=== PATIENT | male | born 1955 | race African-American/Black ===

== ENCOUNTER 2016-08-03 11:08 | Inpatient (IN) | payer OTHER ==
[2016-08-03 12:20] VITALS: BMI 24.2
--- NOTE | 2016-08-03 13:26 | HP ---
CIWA Score - CIWA Score Nausea/Vomitin-No Nausea/No Vomiting Muscle Tremors: 4-Moderate,w/Arms Extend Anxiety: 4-Mod. Anxious/Guarded Agitation: 4-Moderately Restless Paroxysmal Sweats: 3 Orientation: 0-Oriented Tacttile Disturbances: 0-None Auditory Disturbances: 0-None Visual Disturbances: 0-None Headache: 0-None Present CIWA-Ar Total Score: 15 Admission ROS BHS - HPI Chief Complaint: I am here to detox and go to rehab. Allergies/Adverse Reactions: Allergies Allergy/AdvReac Type Severity Reaction Status Date / Time No Known Allergies Allergy Verified 08/03/16 13:12 History of Present Illness: pt is a 60yr old male with a history of alcohol dependence seeking detox for treatment. Exam Limitations: No Limitations - Ebola screening Have you traveled outside of the country in the last 21 days: No Have you had contact with anyone from an Ebola affected area: No Have you been sick,other than usual withdrawal symptoms: No - Review of Systems Constitutional: Diaphoresis, Loss of Appetite, Night Sweats, Unintentional Wgt. Loss EENT: reports: No Symptoms Reported, Blurred Vision, Other (KOI left ear.) Respiratory: reports: No Symptoms reported Cardiac: reports: Syncope GI: reports: Poor Appetite, Poor Fluid Intake : reports: No Symptoms Reported Musculoskeletal: reports: No Symptoms Reported Integumentary: reports: No Symptoms Reported Neuro: reports: Tingling, Tremors Endocrine: reports: Flushing, Intolerance to Cold, Intolerance to Heat Hematology: reports: No Symptoms Reported Psychiatric: reports: Judgement Intact, Mood/Affect Appropiate, Orientated x3, Agitated, Anxious Other Systems: Reviewed and Negative Patient History - Patient Medical History Hx Anemia: No Hx Asthma: No Hx Chronic Obstructive Pulmonary Disease (COPD): No Hx Cancer: No Hx Cardiac Disorders: No Hx Congestive Heart Failure: No Hx Hypertension: No Hx Hypercholesterolemia: No Hx Pacemaker: No HX Cerebrovascular Accident: No Hx Seizures: No Hx Dementia: No Hx Diabetes: No Hx Gastrointestinal Disorders: No Hx Liver Disease: No Hx Genitourinary Disorders: No Hx Sexually Transmitted Disorders: Yes (1983 syphillis and treated) Hx Renal Disease (ESRD): No Hx Thyroid Disease: No Hx Human Immunodeficiency Virus (HIV): No (negative) Hx Hepatitis C: No (negative) Hx Depression: Yes Hx Suicide Attempt: No (denies) Hx Bipolar Disorder: No Hx Schizophrenia: Yes - Patient Surgical History Past Surgical History: No Hx Orthopedic Surgery: Yes (fx left arm 1976) Other Surgical History: dental 1986 - PPD History Previous Implant?: Yes Documented Results: Negative w/o proof Implanted On Prior [facility] Admission?: Yes PPD to be Administered?: Yes - Reproductive History Patient is a Female of Child Bearing Age (11 -55 yrs old): No - Smoking Cessation Smoking history: Current every day smoker Have you smoked in the past 12 months: Yes Aproximately how many cigarettes per day: 10 Hx Chewing Tobacco Use: No Initiated information on smoking cessation: Yes 'Breaking Loose' booklet given: 08/03/16 - Substance & Tx. History Hx Alcohol Use: Yes Hx Substance Use: Yes Substance Use Type: Alcohol, Marijuana Hx Substance Use Treatment: Yes - Substances Abused Alcohol Route: Oral Frequency: Daily Amount used: 1 PINT OF SCOTCH OR WHISKEY Age of first use: 13 Date of Last Use: 08/02/16 K2 Route: Smoking Frequency: Daily Amount used: 4 JOINTS Age of first use: 59 Date of Last Use: 08/02/16 Family Disease History - Family Disease History Family Disease History: Heart Disease: Mother, Other: Grandparent (ARTHRITIS) Admission Physical Exam S - Vital Signs Vital Signs: Vital Signs - 24 hr 08/03/16 12:18 Temperature 96.2 F L Pulse Rate 71 Respiratory 20 Rate Blood Pressure 132/81 - Physical General Appearance: Yes: Appropriately Dressed, Tremorous, Irritable, Sweating, Anxious HEENTM: Yes: Hearing grossly Normal, Other (KOI left ear) Respiratory: Yes: Lungs Clear, Normal Breath Sounds, No Respiratory Distress Neck: Yes: No masses,lesions,Nodules Breast: Yes: Within Normal Limits Cardiology: Yes: Regular Rhythm, Regular Rate, S1, S2 Abdominal: Yes: Normal Bowel Sounds, Non Tender, Soft Genitourinary: Yes: Within Normal Limits Back: Yes: Normal Inspection Musculoskeletal: Yes: full range of Motion, Back pain Extremities: Yes: Normal Capillary Refill, Non-Tender, Tremors Neurological: Yes: Fully Oriented, Alert, Normal Response Integumentary: Yes: Normal Color Lymphatic: Yes: Within Normal Limits - Diagnostic (1) Nicotine dependence Current Visit: Yes Status: Chronic Qualifiers: Nicotine product type: cigarettes Substance use status: uncomplicated Qualified Code(s): F17.210 - Nicotine dependence, cigarettes, uncomplicated (2) Paranoid schizophrenia Current Visit: No Status: Chronic (3) Alcohol dependence with uncomplicated withdrawal Current Visit: Yes Status: Chronic Cleared for Admission [facility] - Detox or Rehab [facility] Level of Care: Medically Managed Detox Regimen/Protocol: Librium BHS Breath Alcohol Content Breath Alcohol Content: 0 Urine Drug Screen - Results Drug Screen Negative: Yes
[2016-08-03] MEDS ORDERED: guaiFENesin/D-METHORPHAN HB 10 ML UNIT-DOSE CUPS PO PRN (13:33)
[2016-08-03] MEDS ORDERED: P-EPHED 60MG/TRIPROLIDI 2.5MG TABLET PO PRN (13:33)
[2016-08-03] MEDS ORDERED: MAGNESIUM HYDROX 2400MG/30ML ORAL SUSPENSION 30 ML CUP PO PRN (13:33)
[2016-08-03] MEDS ORDERED: chlordiazePOXIDE HCL 25 MG CAPSULE PO PRN (13:33)
[2016-08-03] MEDS ORDERED: ACETAMINOPHEN 325 MG TABLET (FP) PO PRN (13:33)
[2016-08-03] MEDS ORDERED: LOPERAMIDE HCL 2 MG CAPSULE PO PRN (13:33)
[2016-08-03] MEDS ORDERED: MAGNESIUM CITRATE 300 ML BOTTLE PO PRN (13:33)
[2016-08-03] MEDS ORDERED: NICOTINE POLACRILEX 4 MG GUM BC PRN (13:33)
[2016-08-03] MEDS ORDERED: MAG HYDROX/AL HYDROX/SIMETH 30 ML UNIT-DOSE CUP PO PRN (13:33)
[2016-08-03] MEDS ORDERED: MENTHOL/PHENOL 1 EACH UD MM PRN (13:33)
[2016-08-03] MEDS ORDERED: hydrOXYzine PAMOATE 50 MG CAPSULE (FP) PO PRN (13:33)
[2016-08-03] MEDS ORDERED: IBUPROFEN 400 MG TABLET (FP) PO PRN (13:33)
[2016-08-03] MEDS ORDERED: chlordiazePOXIDE HCL 25 MG CAPSULE PO ONE (14:15)
[2016-08-03] MEDS: chlordiazePOXIDE HCL 25 MG CAPSULE PO SCH ×2 (17:31→23:07)
[2016-08-03 20:20] LABS: URINE APPEARANCE CLEAR; URINE BILIRUBIN NEGATIVE (NEGATIVE); URINE BLOOD NEGATIVE (NEGATIVE); URINE COLOR YELLOW; URINE GLUCOSE (UA) NEGATIVE (NEGATIVE); URINE KETONE NEGATIVE (NEGATIVE); URINE LEUK ESTERASE NEGATIVE (NEGATIVE); URINE NITRITE NEGATIVE (NEGATIVE); URINE PROTEIN NEGATIVE (NEGATIVE); URINE UROBILINOGEN NEGATIVE E.U./dl (0.2-1.0)
[2016-08-03] MEDS: THIAMINE HCL 100 MG TABLET (FP) PO SCH (23:07)
[2016-08-04] MEDS: chlordiazePOXIDE HCL 25 MG CAPSULE PO SCH ×4 (06:37→22:14)
[2016-08-04 10:33] LABS: ALBUMIN 3.7 g/dl (3.4-5.0); ANION GAP 5 (8-16); CALCIUM 9.5 mg/dL (8.5-10.1); CO2 29 mmol/L (21-32); GLUCOSE,RANDOM 174 mg/dL (74-106); SGOT/AST 12 U/L (15-37); SGPT/ALT 14 U/L (12-78)
[2016-08-04 10:36] LABS: ALK PHOS 63 U/L (45-117); BILIRUBIN,TOTAL 0.3 mg/dL (0.2-1.0); COCKROFT - GAULT 75.14; CREATININE 1.1 mg/dL (0.7-1.3); TOT PROT 7.2 g/dl (6.4-8.2)
[2016-08-04] MEDS: ASPIRIN 81 MG CHEWABLE TABLETS PO SCH (10:37)
[2016-08-04] MEDS: PRENATAL VITAMINS W/ FOLIC ACID TABLET (FP) PO SCH (10:37)
[2016-08-04] MEDS: NICOTINE 21 MG/24 HOURS TOPICAL PATCH TD SCH (10:39)
[2016-08-04 10:47] LABS: MCH 22.6 pg (25.7-33.7); MCHC 31.9 g/dl (32.0-35.9); MEAN CELL VOLUME 70.9 fl (80-96); MEAN PLT VOLUME 9.7 fl (7.5-11.1); PLATELET COUNT 243 K/MM3 (134-434); RDW 18.6 % (11.9-15.9); WHITE BLOOD COUNT 7.6 K/mm3 (4.0-10.0)
[2016-08-04 12:21] LABS: HIV 1 & 2 AB NEGATIVE; HIV 1 AGp24 NEGATIVE
--- NOTE | 2016-08-04 14:42 | PN ---
S CIWA - CIWA Score Nausea/Vomitin-No Nausea/No Vomiting Muscle Tremors: 3 Anxiety: 4-Mod. Anxious/Guarded Agitation: 3 Paroxysmal Sweats: 3 Orientation: 0-Oriented Tacttile Disturbances: 0-None Auditory Disturbances: 0-None Visual Disturbances: 0-None Headache: 0-None Present CIWA-Ar Total Score: 13 BHS Progress Note (SOAP) Subjective: Anxiety,tremors,sweating,interrupted sleep,restless. Objective: 08/04/16 14:41 Vital Signs - 8 hr 08/04/16 08/04/16 10:00 14:15 Temperature 97.0 F L 98.2 F Pulse Rate 80 78 Respiratory 18 20 Rate Blood Pressure 143/76 128/64 Laboratory Tests 08/03/16 08/03/16 08/04/16 13:00 14:30 06:00 WBC 7.6 RBC 5.23 Hgb 11.8 Hct 37.1 MCV 70.9 L MCHC 31.9 L RDW 18.6 H Plt Count 243 MPV 9.7 Sodium Potassium Chloride Carbon Dioxide Anion Gap BUN Creatinine Creat Clearance w eGFR Random Glucose Calcium Total Bilirubin AST ALT Alkaline Phosphatase Total Protein Albumin Urine Color Yellow Urine Appearance Clear Urine pH 5.0 D Ur Specific [place] 1.015 Urine Protein Negative Urine Glucose (UA) Negative Urine Ketones Negative Urine Blood Negative Urine Nitrite Negative Urine Bilirubin Negative Urine Urobilinogen Negative Ur Leukocyte Esterase Negative HIV 1&2 Antibody Screen Negative HIV P24 Antigen Negative 08/04/16 06:00 WBC RBC Hgb Hct MCV MCHC RDW Plt Count MPV Sodium 139 Potassium 5.1 Chloride 105 Carbon Dioxide 29 Anion Gap 5 L BUN 24 H D Creatinine 1.1 D Creat Clearance w eGFR > 60 Random Glucose 174 H D Calcium 9.5 Total Bilirubin 0.3 D AST 12 L ALT 14 Alkaline Phosphatase 63 Total Protein 7.2 Albumin 3.7 Urine Color Urine Appearance Urine pH Ur Specific [place] Urine Protein Urine Glucose (UA) Urine Ketones Urine Blood Urine Nitrite Urine Bilirubin Urine Urobilinogen Ur Leukocyte Esterase HIV 1&2 Antibody Screen HIV P24 Antigen labs noted Assessment: 08/04/16 14:41 Withdrawal sx. Plan: Continue detox
--- NOTE | 2016-08-04 17:04 | CONSULT ---
[facility] Psychiatric Consult - Data Date of interview: 08/04/16 Admission source: [facility] Identifying data: Readmision to [facility] for this 60 y/o AA male seeking detox treatment for alcohol,cocaine (crack) and marijuana (K2) dependence.Patient is single,a father of two,domiciled unemployed and supported on SSI/SSD benefits. Substance Abuse History: Smoking Cessation. Smoking history: Current every day smoker. Have you smoked in the past 12 months: Yes. Aproximately how many cigarettes per day: 10. Hx Chewing Tobacco Use: No. Initiated information on smoking cessation: Yes. 'Breaking Loose' booklet given: 08/03/16. - Substance & Tx. History. Hx Alcohol Use: Yes. Hx Substance Use: Yes. Substance Use Type : Alcohol, Marijuana. Hx Substance Use Treatment: Yes. - Substances Abused. * * Alcohol. Route: Oral. Frequency: Daily. Amount used: 1 PINT OF SCOTCH OR WHISKEY. Age of first use: 13. Date of Last Use: 08/02/16. K2. Route: Smoking. Frequency: Daily. Amount used: 4 JOINTS. Age of first use: 59. Date of Last Use: 08/02/16. Confirmed by patient. Medical History: Patient endorses good general health.Remote history of treatment for syphilis. Psychiatric History: Diagnosed with Paranoid Schizophrenia.History of multiple psychiatric hospitalizations.Mr Roberts reports OPD follow up care at the [facility] mental health clinic.Maintained on a regimen of haldol decanoate 150 mg IM Q monthly (received on 07/12/16 as per self-report) + cogentin 2 mg po bid + depakote 500 mg po bid.Patient endorses adherence to his aftercare.No reported history of suicide attempts. Physical/Sexual Abuse/Trauma History: Patient denies. Additional Comment: Drug Screen is negative. Mental Status Exam - Mental Status Exam Alert and Oriented to: Time, Place, Person Cognitive Function: Grossly Intact Patient Appearance: Well Groomed (edentulous) Mood: Withdrawn, Hopeful Affect: Blunted Patient Behavior: Fatigued, Cooperative Speech Pattern: Slurred Voice Loudness: Normal Thought Process: Goal Oriented Thought Disorder: Not Present Hallucinations: Denies Suicidal Ideation: Denies Homicidal Ideation: Denies Insight/Judgement: Poor Sleep: Fair Appetite: Good Muscle strength/Tone: Normal Gait/Station: Normal Psychiatric Findings - Problem List ([place] 1, 2,3) (1) Paranoid schizophrenia Current Visit: Yes Status: Chronic (2) Alcohol dependence with uncomplicated withdrawal Current Visit: Yes Status: Acute (3) Nicotine dependence Current Visit: Yes Status: Acute Qualifiers: Nicotine product type: cigarettes Substance use status: uncomplicated Qualified Code(s): F17.210 - Nicotine dependence, cigarettes, uncomplicated (4) Tardive dyskinesia Current Visit: Yes Status: Chronic - Initial Treatment Plan Initial Treatment Plan: Psychoeducation.Detoxification.Medications : cogentin 1 mg po bid + depakote 500 mg po bid.Side effects/benefits are discussed with the patient.Educated about abnormal involuntary movements,dystonias,akathisia, tardive dyskinesia,neuroleptic malignant syndrome with the use of haldol / blood dyscrasias,liver dysfunction,weight gain,alopecia from utilization of valproate / anticholinergic complications from use of cogentin.Teaching conducted in lay language.Patient gave his consent (verbal) for continuation of this regime of medications.Will follow valproic acid level (requested) .Observation.Patient declines scripts at discharge (refills from his OPD provider are available).
--- NOTE | 2016-08-04 19:24 | EKG ---
Test Reason : Blood Pressure : / mmHG Vent. Rate : 069 BPM Atrial Rate : 069 BPM P-R Int : 146 ms QRS Dur : 090 ms QT Int : 418 ms P-R-T Axes : 070 063 055 degrees QTc Int : 447 ms NORMAL SINUS RHYTHM MODERATE VOLTAGE CRITERIA FOR LVH, MAY BE NORMAL VARIANT ANTEROSEPTAL INFARCT , AGE UNDETERMINED ABNORMAL ECG NO PREVIOUS ECGS AVAILABLE Confirmed by BRAYDEN MARLEY, ASTRID ([id number]) on 08/04/2016 7:23:36 PM Referred By: Confirmed By:ASTRID OWEN MD
[2016-08-04] MEDS: DIVALPROEX SODIUM 500 MG TABLET E.C. PO SCH (22:14)
[2016-08-04] MEDS: BENZTROPINE MESYLATE 1 MG TABLET (FP) PO SCH (22:14)
[2016-08-04] MEDS: diphenhydrAMINE HCL 50 MG CAPSULE PO PRN (22:15)
[2016-08-04] MEDS: THIAMINE HCL 100 MG TABLET (FP) PO SCH (22:17)
[2016-08-05] MEDS: chlordiazePOXIDE HCL 25 MG CAPSULE PO SCH ×2 (06:47→10:19)
[2016-08-05] MEDS: ASPIRIN 81 MG CHEWABLE TABLETS PO SCH (10:19)
[2016-08-05] MEDS: NICOTINE 21 MG/24 HOURS TOPICAL PATCH TD SCH (10:19)
[2016-08-05] MEDS: PRENATAL VITAMINS W/ FOLIC ACID TABLET (FP) PO SCH (10:19)
[2016-08-05] MEDS: BENZTROPINE MESYLATE 1 MG TABLET (FP) PO SCH ×2 (10:19→22:24)
[2016-08-05] MEDS: DIVALPROEX SODIUM 500 MG TABLET E.C. PO SCH ×2 (10:19→22:24)
--- NOTE | 2016-08-05 11:31 | PN ---
[facility] CIWA - CIWA Score Nausea/Vomitin-No Nausea/No Vomiting Muscle Tremors: 3 Anxiety: 2 Agitation: 2 Paroxysmal Sweats: 3 Orientation: 0-Oriented Tacttile Disturbances: 0-None Auditory Disturbances: 0-None Visual Disturbances: 0-None Headache: 0-None Present CIWA-Ar Total Score: 10 S Progress Note (SOAP) Subjective: Anxiety,tremors,sweating,interrupted sleep,restless. Objective: 08/05/16 11:27 Vital Signs - 8 hr 08/05/16 08/05/16 08/05/16 03:30 06:27 09:47 Temperature 97.0 F L 97.7 F Pulse Rate 55 L 71 Respiratory 18 18 18 Rate Blood Pressure 132/77 110/75 Laboratory Last Values WBC 7.6 K/mm3 (4.0-10.0) 08/04/16 06:00 RBC 5.23 M/mm3 (4.00-5.60) 08/04/16 06:00 Hgb 11.8 GM/dL (11.7-16.9) 08/04/16 06:00 Hct 37.1 % (35.4-49) 08/04/16 06:00 MCV 70.9 fl (80-96) L 08/04/16 06:00 MCHC 31.9 g/dl (32.0-35.9) L 08/04/16 06:00 RDW 18.6 % (11.9-15.9) H 08/04/16 06:00 Plt Count 243 K/MM3 (134-434) 08/04/16 06:00 MPV 9.7 fl (7.5-11.1) 08/04/16 06:00 Sodium 139 mmol/L (136-145) 08/04/16 06:00 Potassium 5.1 mmol/L (3.5-5.1) 08/04/16 06:00 Chloride 105 mmol/L (98-107) 08/04/16 06:00 Carbon Dioxide 29 mmol/L (21-32) 08/04/16 06:00 Anion Gap 5 (8-16) L 08/04/16 06:00 BUN 24 mg/dL (7-18) H D 08/04/16 06:00 Creatinine 1.1 mg/dL (0.7-1.3) D 08/04/16 06:00 Creat Clearance w eGFR > 60 (>60) 08/04/16 06:00 Random Glucose 174 mg/dL (74-106) H D 08/04/16 06:00 Calcium 9.5 mg/dL (8.5-10.1) 08/04/16 06:00 Total Bilirubin 0.3 mg/dL (0.2-1.0) D 08/04/16 06:00 AST 12 U/L (15-37) L 08/04/16 06:00 ALT 14 U/L (12-78) 08/04/16 06:00 Alkaline Phosphatase 63 U/L (45-117) 08/04/16 06:00 Total Protein 7.2 g/dl (6.4-8.2) 08/04/16 06:00 Albumin 3.7 g/dl (3.4-5.0) 08/04/16 06:00 Urine Color Yellow 08/03/16 13:00 Urine Appearance Clear 08/03/16 13:00 Urine pH 5.0 (5.0-8.0) D 08/03/16 13:00 Ur Specific [place] 1.015 (1.005-1.025) 08/03/16 13:00 Urine Protein Negative (NEGATIVE) 08/03/16 13:00 Urine Glucose (UA) Negative (NEGATIVE) 08/03/16 13:00 Urine Ketones Negative (NEGATIVE) 08/03/16 13:00 Urine Blood Negative (NEGATIVE) 08/03/16 13:00 Urine Nitrite Negative (NEGATIVE) 08/03/16 13:00 Urine Bilirubin Negative (NEGATIVE) 08/03/16 13:00 Urine Urobilinogen Negative E.U./dl (0.2-1.0) 08/03/16 13:00 Ur Leukocyte Esterase Negative (NEGATIVE) 08/03/16 13:00 HIV 1&2 Antibody Screen Negative 08/03/16 14:30 HIV P24 Antigen Negative 08/03/16 14:30 labs noted Assessment: 08/05/16 11:28 Withdrawal sx. Plan: Continue detox
[2016-08-05] MEDS: chlordiazePOXIDE 5 MG CAPSULE PO SCH ×2 (17:20→22:23)
[2016-08-05] MEDS: THIAMINE HCL 100 MG TABLET (FP) PO SCH (22:24)
[2016-08-05] MEDS: diphenhydrAMINE HCL 50 MG CAPSULE PO PRN (22:26)
[2016-08-06] MEDS: chlordiazePOXIDE 5 MG CAPSULE PO SCH ×2 (05:45→10:34)
--- NOTE | 2016-08-06 09:32 | PN ---
S Progress Note (SOAP) Subjective: ALERT,IRRITABLE,ANXIOUS,INTERRUPTED SLEEP Objective: 08/06/16 09:30 Vital Signs Temperature 98.1 F 08/06/16 06:36 Pulse Rate 50 L 08/06/16 06:36 Respiratory Rate 16 08/06/16 06:36 Blood Pressure 130/73 08/06/16 06:36 O2 Sat by Pulse Oximetry (%) Assessment: 08/06/16 09:30 WITHDRAWAL SYMPTOM Plan: CONTINUE DETOX,INITIAL GLUCOSE 170,BGM BID,DISCHARGE IN AM
[2016-08-06] MEDS: ASPIRIN 81 MG CHEWABLE TABLETS PO SCH (10:33)
[2016-08-06] MEDS: DIVALPROEX SODIUM 500 MG TABLET E.C. PO SCH ×2 (10:34→22:16)
[2016-08-06] MEDS: NICOTINE 21 MG/24 HOURS TOPICAL PATCH TD SCH (10:34)
[2016-08-06] MEDS: BENZTROPINE MESYLATE 1 MG TABLET (FP) PO SCH ×2 (10:34→22:16)
[2016-08-06] MEDS: PRENATAL VITAMINS W/ FOLIC ACID TABLET (FP) PO SCH (10:34)
[2016-08-06] MEDS: chlordiazePOXIDE HCL 10 MG CAPSULE PO SCH ×2 (17:21→22:16)
[2016-08-06] MEDS: THIAMINE HCL 100 MG TABLET (FP) PO SCH (22:16)
[2016-08-07] MEDS: chlordiazePOXIDE HCL 10 MG CAPSULE PO SCH ×2 (05:24→11:24)
--- NOTE | 2016-08-07 08:34 | PN ---
S Progress Note (SOAP) Subjective: ALERT,NO COMPLAINT Objective: 08/07/16 08:33 Vital Signs Temperature 97.0 F L 08/07/16 06:24 Pulse Rate 51 L 08/07/16 06:24 Respiratory Rate 18 08/07/16 06:24 Blood Pressure 125/70 08/07/16 06:24 O2 Sat by Pulse Oximetry (%) Assessment: 08/07/16 08:33 DETOX COMPLETED,NO WITHDRAWAL SYMPTOM Plan: DISCHARGE TODAY,FOLLOW UP WITH AFTER CARE PROGRAM ARRANGEMENT
--- NOTE | 2016-08-07 08:35 | DS ---
[facility] Detox Discharge Summary Admission Date: 08/03/16 Discharge Date: 08/07/16 - History Present History: Alcohol Dependence Additional Comments: FOLLOW UP WITH AFTER [facility] PROGRAM ARRANGEMENT AND PMD FOR MEDICAL PROBLEM Pertinent Past History: NICOTINE DEPENDENCE PARANOID SCHIZOPHRENIA - Physical Exam Results Vital Signs: Vital Signs Temperature 97.0 F L 08/07/16 06:24 Pulse Rate 51 L 08/07/16 06:24 Respiratory Rate 18 08/07/16 06:24 Blood Pressure 125/70 08/07/16 06:24 O2 Sat by Pulse Oximetry (%) Pertinent Admission Physical Exam Findings: WITHDRAWAL SYMPTOM - Treatment Hospital Course: Detox Protocol Followed, Detoxed Safely, Responded well, Discharged Condition Good, Rehab Referral Accepted Patient has Accepted a Rehab Referral to: [facility] - Medication Discharge Medications: Ambulatory Orders Aspirin [ASA -] 81 mg PO DAILY 10/22/14 Divalproex *ER* [Depakote *ER* -] 500 mg PO BID #60 tablet.sa 10/23/14 Quetiapine Fumarate [Seroquel -] 200 mg PO HS #30 tablet 10/23/14 Benztropine Mesylate [Cogentin -] 2 mg PO BID 08/03/16 Haloperidol Decanoate [Haldol Decanoate 100] 0 mg IM MONTHLY 08/03/16 - Diagnosis (1) Alcohol dependence with uncomplicated withdrawal Current Visit: Yes Status: Acute (2) Nicotine dependence Current Visit: Yes Status: Acute Qualifiers: Nicotine product type: cigarettes Substance use status: uncomplicated Qualified Code(s): F17.210 - Nicotine dependence, cigarettes, uncomplicated (3) Paranoid schizophrenia Current Visit: Yes Status: Chronic (4) Hyperlipemia Current Visit: No Status: Acute (5) PUD (peptic ulcer disease) Current Visit: No Status: Acute - AMA Did Patient Leave Against Medical Advice: No
[2016-08-07 10:34] VITALS: BP 130/84; PULSE 74; TEMP 99
[2016-08-07] MEDS: ASPIRIN 81 MG CHEWABLE TABLETS PO SCH (11:23)
[2016-08-07] MEDS: PRENATAL VITAMINS W/ FOLIC ACID TABLET (FP) PO SCH (11:24)
[2016-08-07] MEDS: DIVALPROEX SODIUM 500 MG TABLET E.C. PO SCH (11:24)
[2016-08-07] MEDS: BENZTROPINE MESYLATE 1 MG TABLET (FP) PO SCH (11:24)
[2016-08-07] MEDS: NICOTINE 21 MG/24 HOURS TOPICAL PATCH TD SCH (11:24)
== END 2016-08-07 13:00 | disposition other institution (70) | DRG 897 ==
LOC: YASAS 11:08 → Y6N 13:36
PROVIDERS: ADMIT Internal Medicine; ATTEND Internal Medicine
PROC: HZ2ZZZZ Detoxification Services for Substance Abuse Treatment (ICD-10-PCS; principal; 2016-08-07)
DX: F10.230 Alcohol dependence with withdrawal, uncomplicated (principal); F20.0 Paranoid schizophrenia; F17.210 Nicotine dependence, cigarettes, uncomplicated; E78.5 Hyperlipidemia, unspecified; K27.9 Peptic ulcer, site unspecified, unspecified as acute or chronic, without hemorrhage or perforation; G24.01 Drug induced subacute dyskinesia
CPT/HCPCS: 36415; 80053; 80164; 81003; 85027; 86593; 87389; 93005; 93010

== ENCOUNTER 2016-08-07 13:11 | Inpatient (IN) | payer OTHER ==
--- NOTE | 2016-08-07 15:40 | HP ---
Psychiatrist Admission - Data Date of interview: 08/07/16 Admission source: 3N Identifying data: This is the first 5N inpatient rehabilitation admission for this 50 year old single father of two AA male, who is domiciled, [facility], unemployed and supported on SSD benefits. Medical History: Hyprlipidemia, PUD and treatment for Syphilis, smokes cigarettes 10 a day. Psychiatric History: Reports history of Paranoid Schizophrenia, reports his first psychiatric contact was 30 years ago, to address auditory hallucintaions, saw the psychiatrs at [facility], states he has had multiple psychiatric hospitalizations ([facility], [facility]). Patient reports OPD follow up care by the psychiatrist at the [facility] mental health clinic. He currently on haldol decanoate 150 mg IM Q monthly ( received on 07/12/16 as per self-report) states his due day 08/13/16 , cogentin 2 mg po bid and depakote 500 mg po bid. Reports history of suicidal attempts x 2 , stubed self, reports he was hearing voices to stab self, reports he heard 15 voices, ten me and 5 women. Physical/Sexual Abuse/Trauma History: Denies history of sexual, ohysical and verbal abuse. Allergies/Adverse Reactions: Allergies Allergy/AdvReac Type Severity Reaction Status Date / Time No Known Allergies Allergy Verified 08/03/16 13:12 Date of last physical exam: 08/03/16 Concur with the findings of this exam: Yes - Substance Abuse/Tx History Hx Alcohol Use: Yes (1 pint of wiskey, vodka, beer, daily) Hx Substance Use: Yes Substance Use Type: Marijuana (4 joints daily) Hx Substance Use Treatment: Yes ([facility]) - Admission Criteria Previous failed treatment: Yes Poor recovery environment: Yes Comorbidities: Yes Lacks judgement: Yes Mental Status Exam - Mental Status Exam Alert and Oriented to: Time, Place, Person Cognitive Function: Grossly Intact Patient Appearance: Well Groomed Mood: Sad Affect: Mood Congruent, Blunted Patient Behavior: Appropriate, Cooperative Speech Pattern: Clear, Appropriate Voice Loudness: Normal Thought Process: Goal Oriented Thought Disorder: Paranoid Ideation (on and off) Hallucinations: Denies, Auditory (most recently heard voices 07/18/16) Suicidal Ideation: Denies Homicidal Ideation: Denies Insight/Judgement: Fair Sleep: Fair Appetite: Fair Muscle strength/Tone: Normal Gait/Station: Normal Psychiatric Findings - Problem List ([place] 1, 2,3) (1) Nicotine dependence Current Visit: No Status: Acute Qualifiers: Nicotine product type: cigarettes Substance use status: uncomplicated Qualified Code(s): F17.210 - Nicotine dependence, cigarettes, uncomplicated (2) Alcohol dependence Current Visit: No Status: Chronic (3) Cannabis dependence Current Visit: No Status: Chronic (4) Paranoid schizophrenia Current Visit: No Status: Chronic - Initial Treatment Plan Initial Treatment Plan: will continue his current medications, monitor progress as needed.
[2016-08-07] MEDS ORDERED: diphenhydrAMINE HCL 50 MG CAPSULE PO PRN (16:11)
[2016-08-07] MEDS ORDERED: hydrOXYzine PAMOATE 50 MG CAPSULE (FP) PO PRN (16:11)
[2016-08-07] MEDS ORDERED: MAG HYDROX/AL HYDROX/SIMETH 30 ML UNIT-DOSE CUP PO PRN (16:11)
[2016-08-07] MEDS ORDERED: NICOTINE POLACRILEX 2 MG GUM BUC PRN (16:11)
[2016-08-07] MEDS ORDERED: guaiFENesin/D-METHORPHAN HB 10 ML UNIT-DOSE CUPS PO PRN (16:11)
[2016-08-07] MEDS ORDERED: P-EPHED 60MG/TRIPROLIDI 2.5MG TABLET PO PRN (16:11)
[2016-08-07] MEDS ORDERED: ACETAMINOPHEN 325 MG TABLET (FP) PO PRN (16:11)
[2016-08-07] MEDS ORDERED: MAGNESIUM CITRATE 300 ML BOTTLE PO PRN (16:11)
[2016-08-07] MEDS ORDERED: MAGNESIUM HYDROX 2400MG/30ML ORAL SUSPENSION 30 ML CUP PO PRN (16:11)
[2016-08-07] MEDS ORDERED: MENTHOL/PHENOL 1 EACH UD MM PRN (16:11)
[2016-08-07] MEDS ORDERED: LOPERAMIDE HCL 2 MG CAPSULE PO PRN (16:11)
[2016-08-07] MEDS ORDERED: IBUPROFEN 400 MG TABLET (FP) PO PRN (16:11)
--- NOTE | 2016-08-07 16:14 | HP ---
[facility] Re[facility] Assess/Revision - Admission History Admitted to Rehab from: [facility] [place] Date of Admission to Rehab: 08/07/16 - Vital signs Vital Signs: Vital Signs Period Temp Pulse Resp BP Sys/Brooks Pulse Ox Last 24 Hr 98.1 F 79 16 113/77 - Findings Detox History & Physical reviewed: Yes Concur with findings: Yes Comments/Additional Findings: FOR REHAB PROTOCOL
[2016-08-07] MEDS: BENZTROPINE MESYLATE 1 MG TABLET (FP) PO SCH (21:05)
[2016-08-07] MEDS: QUEtiapine FUMARATE 200 MG TABLET PO SCH (21:05)
[2016-08-07] MEDS: DIVALPROEX NA *ER* EXTEND REL 500 MG TABLET.SA (FP) PO SCH (21:05)
[2016-08-07] MEDS: THIAMINE HCL 100 MG TABLET (FP) PO SCH (21:05)
[2016-08-08] MEDS: PRENATAL VITAMINS W/ FOLIC ACID TABLET (FP) PO SCH (10:01)
[2016-08-08] MEDS: DIVALPROEX NA *ER* EXTEND REL 500 MG TABLET.SA (FP) PO SCH ×2 (10:01→21:07)
[2016-08-08] MEDS: NICOTINE 21 MG/24 HOURS TOPICAL PATCH TD SCH (10:02)
[2016-08-08] MEDS: ASPIRIN 81 MG CHEWABLE TABLETS PO SCH (10:02)
[2016-08-08] MEDS: BENZTROPINE MESYLATE 1 MG TABLET (FP) PO SCH ×2 (10:02→21:07)
[2016-08-08] MEDS: QUEtiapine FUMARATE 200 MG TABLET PO SCH (21:07)
[2016-08-08] MEDS: THIAMINE HCL 100 MG TABLET (FP) PO SCH (21:07)
[2016-08-09] MEDS: DIVALPROEX NA *ER* EXTEND REL 500 MG TABLET.SA (FP) PO SCH ×2 (10:16→21:21)
[2016-08-09] MEDS: PRENATAL VITAMINS W/ FOLIC ACID TABLET (FP) PO SCH (10:16)
[2016-08-09] MEDS: NICOTINE 21 MG/24 HOURS TOPICAL PATCH TD SCH (10:16)
[2016-08-09] MEDS: BENZTROPINE MESYLATE 1 MG TABLET (FP) PO SCH ×2 (10:16→21:21)
[2016-08-09] MEDS: ASPIRIN 81 MG CHEWABLE TABLETS PO SCH (10:16)
--- NOTE | 2016-08-09 15:16 | PN ---
[facility] Progress Note Note: [facility] spoke with PAYAM Logan who verified that patient had a Haldol Decanote IM o 150 mg on 07/12/16 his net injection due on , and he is under the care of . Clinic number is [phone].
[2016-08-09] MEDS: QUEtiapine FUMARATE 200 MG TABLET PO SCH (21:22)
[2016-08-09] MEDS: THIAMINE HCL 100 MG TABLET (FP) PO SCH (21:22)
[2016-08-10] MEDS: ASPIRIN 81 MG CHEWABLE TABLETS PO SCH (10:00)
[2016-08-10] MEDS: DIVALPROEX NA *ER* EXTEND REL 500 MG TABLET.SA (FP) PO SCH ×2 (10:00→21:13)
[2016-08-10] MEDS: PRENATAL VITAMINS W/ FOLIC ACID TABLET (FP) PO SCH (10:01)
[2016-08-10] MEDS: BENZTROPINE MESYLATE 1 MG TABLET (FP) PO SCH ×2 (10:01→21:13)
[2016-08-10] MEDS: NICOTINE 21 MG/24 HOURS TOPICAL PATCH TD SCH (10:01)
--- NOTE | 2016-08-10 12:23 | PN ---
[facility] Progress Note Note: alert,no complaint,has temp early bur now afebrile lung clear heent normal alert,oriented x 3 encourage oral fluid close monitoring
[2016-08-10] MEDS: QUEtiapine FUMARATE 200 MG TABLET PO SCH (21:13)
[2016-08-10] MEDS: THIAMINE HCL 100 MG TABLET (FP) PO SCH (21:13)
[2016-08-11] MEDS: BENZTROPINE MESYLATE 1 MG TABLET (FP) PO SCH ×2 (09:55→21:17)
[2016-08-11] MEDS: NICOTINE 21 MG/24 HOURS TOPICAL PATCH TD SCH (09:55)
[2016-08-11] MEDS: PRENATAL VITAMINS W/ FOLIC ACID TABLET (FP) PO SCH (09:55)
[2016-08-11] MEDS: DIVALPROEX NA *ER* EXTEND REL 500 MG TABLET.SA (FP) PO SCH ×2 (09:55→21:17)
[2016-08-11] MEDS: ASPIRIN 81 MG CHEWABLE TABLETS PO SCH (09:55)
[2016-08-11] MEDS: QUEtiapine FUMARATE 200 MG TABLET PO SCH (21:17)
[2016-08-11] MEDS: THIAMINE HCL 100 MG TABLET (FP) PO SCH (21:17)
[2016-08-12] MEDS: BENZTROPINE MESYLATE 1 MG TABLET (FP) PO SCH ×2 (09:54→21:10)
[2016-08-12] MEDS: PRENATAL VITAMINS W/ FOLIC ACID TABLET (FP) PO SCH (09:55)
[2016-08-12] MEDS: DIVALPROEX NA *ER* EXTEND REL 500 MG TABLET.SA (FP) PO SCH ×2 (09:55→21:10)
[2016-08-12] MEDS: ASPIRIN 81 MG CHEWABLE TABLETS PO SCH (09:55)
[2016-08-12] MEDS: NICOTINE 21 MG/24 HOURS TOPICAL PATCH TD SCH (09:55)
[2016-08-12] MEDS ORDERED: HALOPERIDOL DECANOATE 100 MG/ML IM ONE (10:00)
[2016-08-12] MEDS: QUEtiapine FUMARATE 200 MG TABLET PO SCH (21:10)
[2016-08-12] MEDS: THIAMINE HCL 100 MG TABLET (FP) PO SCH (21:10)
[2016-08-13] MEDS: PRENATAL VITAMINS W/ FOLIC ACID TABLET (FP) PO SCH (10:14)
[2016-08-13] MEDS: ASPIRIN 81 MG CHEWABLE TABLETS PO SCH (10:15)
[2016-08-13] MEDS: DIVALPROEX NA *ER* EXTEND REL 500 MG TABLET.SA (FP) PO SCH ×2 (10:15→21:22)
[2016-08-13] MEDS: BENZTROPINE MESYLATE 1 MG TABLET (FP) PO SCH ×2 (10:15→21:23)
[2016-08-13] MEDS: NICOTINE 21 MG/24 HOURS TOPICAL PATCH TD SCH (10:16)
[2016-08-13] MEDS: QUEtiapine FUMARATE 200 MG TABLET PO SCH (21:22)
[2016-08-13] MEDS: THIAMINE HCL 100 MG TABLET (FP) PO SCH (21:22)
[2016-08-14] MEDS: PRENATAL VITAMINS W/ FOLIC ACID TABLET (FP) PO SCH (10:21)
[2016-08-14] MEDS: DIVALPROEX NA *ER* EXTEND REL 500 MG TABLET.SA (FP) PO SCH ×2 (10:21→21:28)
[2016-08-14] MEDS: ASPIRIN 81 MG CHEWABLE TABLETS PO SCH (10:21)
[2016-08-14] MEDS: BENZTROPINE MESYLATE 1 MG TABLET (FP) PO SCH ×2 (10:21→21:29)
[2016-08-14] MEDS: NICOTINE 21 MG/24 HOURS TOPICAL PATCH TD SCH (10:22)
[2016-08-14] MEDS: QUEtiapine FUMARATE 200 MG TABLET PO SCH (21:28)
[2016-08-14] MEDS: THIAMINE HCL 100 MG TABLET (FP) PO SCH (21:28)
[2016-08-15] MEDS: NICOTINE 21 MG/24 HOURS TOPICAL PATCH TD SCH (10:10)
[2016-08-15] MEDS: PRENATAL VITAMINS W/ FOLIC ACID TABLET (FP) PO SCH (10:11)
[2016-08-15] MEDS: ASPIRIN 81 MG CHEWABLE TABLETS PO SCH (10:11)
[2016-08-15] MEDS: DIVALPROEX NA *ER* EXTEND REL 500 MG TABLET.SA (FP) PO SCH ×2 (10:12→21:23)
[2016-08-15] MEDS: BENZTROPINE MESYLATE 1 MG TABLET (FP) PO SCH ×2 (10:12→21:23)
[2016-08-15] MEDS: THIAMINE HCL 100 MG TABLET (FP) PO SCH (21:22)
[2016-08-15] MEDS: QUEtiapine FUMARATE 200 MG TABLET PO SCH (21:23)
[2016-08-16] MEDS: PRENATAL VITAMINS W/ FOLIC ACID TABLET (FP) PO SCH (10:13)
[2016-08-16] MEDS: DIVALPROEX NA *ER* EXTEND REL 500 MG TABLET.SA (FP) PO SCH ×2 (10:13→21:24)
[2016-08-16] MEDS: BENZTROPINE MESYLATE 1 MG TABLET (FP) PO SCH ×2 (10:13→21:24)
[2016-08-16] MEDS: ASPIRIN 81 MG CHEWABLE TABLETS PO SCH (10:13)
[2016-08-16] MEDS: NICOTINE 21 MG/24 HOURS TOPICAL PATCH TD SCH (10:14)
[2016-08-16] MEDS: QUEtiapine FUMARATE 200 MG TABLET PO SCH (21:24)
[2016-08-16] MEDS: THIAMINE HCL 100 MG TABLET (FP) PO SCH (21:24)
[2016-08-17] MEDS: PRENATAL VITAMINS W/ FOLIC ACID TABLET (FP) PO SCH (10:00)
[2016-08-17] MEDS: NICOTINE 21 MG/24 HOURS TOPICAL PATCH TD SCH (10:00)
[2016-08-17] MEDS: ASPIRIN 81 MG CHEWABLE TABLETS PO SCH (10:00)
[2016-08-17] MEDS: DIVALPROEX NA *ER* EXTEND REL 500 MG TABLET.SA (FP) PO SCH ×2 (10:00→21:35)
[2016-08-17] MEDS: BENZTROPINE MESYLATE 1 MG TABLET (FP) PO SCH ×2 (10:00→21:36)
[2016-08-17] MEDS: QUEtiapine FUMARATE 200 MG TABLET PO SCH (21:35)
[2016-08-17] MEDS: THIAMINE HCL 100 MG TABLET (FP) PO SCH (21:35)
[2016-08-18] MEDS: PRENATAL VITAMINS W/ FOLIC ACID TABLET (FP) PO SCH (09:45)
[2016-08-18] MEDS: ASPIRIN 81 MG CHEWABLE TABLETS PO SCH (09:45)
[2016-08-18] MEDS: NICOTINE 21 MG/24 HOURS TOPICAL PATCH TD SCH (09:46)
[2016-08-18] MEDS: BENZTROPINE MESYLATE 1 MG TABLET (FP) PO SCH ×2 (09:46→21:45)
[2016-08-18] MEDS: DIVALPROEX NA *ER* EXTEND REL 500 MG TABLET.SA (FP) PO SCH ×2 (09:46→21:44)
[2016-08-18] MEDS: QUEtiapine FUMARATE 200 MG TABLET PO SCH (21:44)
[2016-08-18] MEDS: THIAMINE HCL 100 MG TABLET (FP) PO SCH (21:44)
[2016-08-19] MEDS: ASPIRIN 81 MG CHEWABLE TABLETS PO SCH (10:03)
[2016-08-19] MEDS: PRENATAL VITAMINS W/ FOLIC ACID TABLET (FP) PO SCH (10:03)
[2016-08-19] MEDS: BENZTROPINE MESYLATE 1 MG TABLET (FP) PO SCH ×2 (10:03→21:41)
[2016-08-19] MEDS: NICOTINE 21 MG/24 HOURS TOPICAL PATCH TD SCH (10:04)
[2016-08-19] MEDS: DIVALPROEX NA *ER* EXTEND REL 500 MG TABLET.SA (FP) PO SCH ×2 (10:04→21:41)
[2016-08-19] MEDS: QUEtiapine FUMARATE 200 MG TABLET PO SCH (21:41)
[2016-08-19] MEDS: THIAMINE HCL 100 MG TABLET (FP) PO SCH (21:41)
[2016-08-20] MEDS: ASPIRIN 81 MG CHEWABLE TABLETS PO SCH (11:16)
[2016-08-20] MEDS: BENZTROPINE MESYLATE 1 MG TABLET (FP) PO SCH ×2 (11:16→21:26)
[2016-08-20] MEDS: DIVALPROEX NA *ER* EXTEND REL 500 MG TABLET.SA (FP) PO SCH ×2 (11:17→21:26)
[2016-08-20] MEDS: NICOTINE 21 MG/24 HOURS TOPICAL PATCH TD SCH (11:17)
[2016-08-20] MEDS: PRENATAL VITAMINS W/ FOLIC ACID TABLET (FP) PO SCH (11:19)
[2016-08-20] MEDS: QUEtiapine FUMARATE 200 MG TABLET PO SCH (21:26)
[2016-08-20] MEDS: THIAMINE HCL 100 MG TABLET (FP) PO SCH (21:26)
[2016-08-21 06:36] VITALS: BP 140/78; PULSE 63; TEMP 97.9
[2016-08-21] MEDS: PRENATAL VITAMINS W/ FOLIC ACID TABLET (FP) PO SCH (10:03)
[2016-08-21] MEDS: BENZTROPINE MESYLATE 1 MG TABLET (FP) PO SCH (10:03)
[2016-08-21] MEDS: DIVALPROEX NA *ER* EXTEND REL 500 MG TABLET.SA (FP) PO SCH (10:03)
[2016-08-21] MEDS: ASPIRIN 81 MG CHEWABLE TABLETS PO SCH (10:03)
[2016-08-21] MEDS: NICOTINE 21 MG/24 HOURS TOPICAL PATCH TD SCH (10:03)
--- NOTE | 2016-08-21 10:54 | PN ---
Psychiatric Progress Note Vital Signs: Vital Signs Period Temp Pulse Resp BP Sys/Brooks Pulse Ox Last 24 Hr 97.9 F 63 18-18 140/78 Date of Session: 08/21/16 Chief Complaint:: discharge visit HPI: Patient has addressed alcohol, cannabis, nicotine dependence comorbid Schizophrenia. ROS: Hyperlipidemia, PUD medically managed.` Current Medications: Active Medications Generic Name Dose Route Start Last Admin Trade Name Freq PRN Reason Stop Dose Admin Acetaminophen 650 mg 08/07/16 16:11 08/10/16 06:17 Tylenol - PO 650 mg Q4H PRN Administration FEVER OR PAIN Al Hydroxide/Mg Hydroxide 30 ml 08/07/16 16:11 Mylanta Oral Suspension - PO Q6H PRN DYSPEPSIA Aspirin 81 mg 08/08/16 10:00 08/21/16 10:03 Asa - PO 81 mg DAILY LARISA Administration Benztropine Mesylate 2 mg 08/07/16 22:00 08/21/16 10:03 Cogentin - PO 2 mg BID LARISA Administration Diphenhydramine HCl 50 mg 08/07/16 16:11 Benadryl - PO HSMR1 PRN FOR ITCHING Divalproex Sodium 500 mg 08/07/16 22:00 08/21/16 10:03 Depakote *Er* - PO 500 mg BID LARISA Administration Eucalyptus/Menthol/Phenol/Sorbitol 1 each 08/07/16 16:11 Cepastat Lozenge - MM Q4H PRN SORE THROAT Guaifenesin 10 ml 08/07/16 16:11 08/16/16 03:55 Robitussin Dm - PO 10 ml Q6H PRN Administration COUGH Hydroxyzine Pamoate 50 mg 08/07/16 16:11 08/10/16 06:17 Vistaril - PO 50 mg Q4H PRN Administration AGITATION Ibuprofen 400 mg 08/07/16 16:11 Motrin - PO Q6H PRN PAIN Loperamide HCl 4 mg 08/07/16 16:11 Imodium - PO Q6H PRN DIARRHEA Magnesium Hydroxide 30 ml 08/07/16 16:11 Milk Of Magnesia - PO DAILY PRN CONSTIPATION Nicotine 21 mg 08/08/16 10:00 08/21/16 10:03 Nicoderm Patch - TD Not Given DAILY LARISA Nicotine Polacrilex 2 mg 08/07/16 16:11 Nicorette Gum - BUC Q2H PRN NICOTINE REPLACEMENT RX Multivit/Folic Acid/Iron 1 tab 08/08/16 10:00 08/21/16 10:03 Vitamins ([facility]) - PO 1 tab DAILY LARISA Administration Pseudoephedrine/Triprolidine 1 combo 08/07/16 16:11 Actifed - PO TID PRN NASAL CONGESTION Quetiapine Fumarate 200 mg 08/07/16 22:00 08/20/16 21:26 Seroquel - PO 200 mg HS LARISA Administration Thiamine HCl 100 mg 08/07/16 22:00 08/20/16 21:26 Vitamin B1 - PO 100 mg HS LARISA Administration Current Side Effect: No Lab tests ordered: No Lab tests reviewed: Yes Provider note:: Patient has completed today his treatment and met his goals, will continue to address his issues at next level of care. He gained insights into his problems and motivated to continue maintain abstinence. Patient will folllow up with [facility], he had Haldol Decanoate 150 mg injection on 08/12/16, patient made aware his next due on 09/11/16. Patient understands the negative impact of his addiction on his physical and mental health, medications well tolerated, scripts provided, patient was encouraged to utilize all supports available to prevent relapses.Patient is stable for discharge today. Total face to face time:: 30 Mental Status Exam - Mental Status Exam Alert and Oriented to: Time, Place, Person Cognitive Function: Good Patient Appearance: Well Groomed Mood: Hopeful Affect: Appropriate, Mood Congruent Patient Behavior: Appropriate, Cooperative Speech Pattern: Clear, Appropriate Voice Loudness: Normal Thought Process: Intact, Goal Oriented Thought Disorder: Not Present Hallucinations: Denies Suicidal Ideation: Denies Homicidal Ideation: Denies Insight/Judgement: Fair Sleep: Fair Appetite: Good Muscle strength/Tone: Normal Gait/Station: Normal Psychiatric Treatment Plan - Problem List (1) Nicotine dependence Current Visit: No Qualifiers: Nicotine product type: cigarettes Substance use status: uncomplicated Qualified Code(s): F17.210 - Nicotine dependence, cigarettes, uncomplicated (2) Alcohol dependence Current Visit: No (3) Cannabis dependence Current Visit: No (4) Paranoid schizophrenia Current Visit: No
== END 2016-08-21 10:47 | disposition home or self-care (01) | DRG 895 ==
LOC: YASAS 13:11 → Y5N 13:13
PROVIDERS: ADMIT Psychiatry & Neurology Psychiatry; ATTEND Psychiatry & Neurology Psychiatry
PROC: HZ42ZZZ Group Counseling for Substance Abuse Treatment, Cognitive-Behavioral (ICD-10-PCS; principal; 2016-08-07)
DX: F10.20 Alcohol dependence, uncomplicated (principal); F20.0 Paranoid schizophrenia; F12.20 Cannabis dependence, uncomplicated; F17.210 Nicotine dependence, cigarettes, uncomplicated; E78.5 Hyperlipidemia, unspecified; K27.9 Peptic ulcer, site unspecified, unspecified as acute or chronic, without hemorrhage or perforation; Z87.438 Personal history of other diseases of male genital organs